=== PATIENT | female | born 1980 | race Caucasian/White ===

== ENCOUNTER → 2017-03-14 | Outpatient (CLI) | payer OTHER ==
[~2017-03-14] MED LIST: ALBUTEROL2.5 MG/0.1 INH; CLEOCIN HCL300 MG PO; IBUPROFEN 600600 M1 PO; LEVOTHYROXIN0.075 MG PO; LORTAB 7.5/5001 TA3 PO; MELATONIN5 M2 PO; MULTIVITAMINS PO; TUMS PO; VITAMIN D1000 UNI1 PO; ZYRTEC10 M2 PO
== END ==
LOC: ULTRA 18:22
DX: E89.0 Postprocedural hypothyroidism (principal); R13.10 Dysphagia, unspecified

== ENCOUNTER → 2017-10-24 | Outpatient (CLI) | payer OTHER | LOC: ULTRA 14:47 | DX: N63.0 Unspecified lump in unspecified breast (principal) ==